=== PATIENT | female | born 1985 | race Caucasian/White ===

== ENCOUNTER 2016-10-10 17:46 | Emergency (ER) | payer SELFPAY ==
[~2016-10-10] VITALS: Ht 154.9 cm; Wt 60.0 kg
[~2016-10-10 17:46] MED LIST: MACR100C2 PO; PREN29TA PO
[2016-10-10 17:48] VITALS: BP 148/87; PULSE 109; RESP 20; TEMP 100; O2SAT 96
[2016-10-10] MEDS ORDERED: SODIUM CHLOR 0.9% 1000 ML INJ 1,000 ML IV ONE (18:16)
[2016-10-10] MEDS ORDERED: ONDANSETRON HCL 4 MG/2 ML VIAL IVP ONE (18:30)
[2016-10-10] MEDS ORDERED: KETOROLAC TROMETHAMINE 30 MG/ML (IVP) VIAL IVP ONE (18:30)
[2016-10-10] MEDS ORDERED: MORPHINE SULFATE 4 MG/ML INJ IV ONE (18:30)
--- NOTE | 2016-10-10 18:41 | PD ---
HPI Chief Complaint: Flank/Kidney Pain Time Seen by Provider: 18:08 Travel History International Travel<30 days: No Contact w/Intl Traveler<30days: No Traveled to known affect area: No History of Present Illness HPI 30-year-old female that presents to the ED for evaluation of right-sided flank pain with urinary symptoms. Per patient she's had this for the past couple of days. Per patient is started on Wednesday. Per patient he was more urinary dysuria with flank pain with cloudy urine. Per patient she denies any vaginal discharge or bleeding. No bowel movement issues. She's never had anything like this before. She denies possibly to . She has had 2 C-sections in the past. Denies any history of kidney stones. Per patient the pain is more significant on the right side but she also has another left side. Per patient the pain is 8 out of 10. Denies any nausea or vomiting. No allergies to medication. No trauma or injury. Patient was specifically asked if she breast-feeds and she states that she does not. PFSH Past Medical History Medical History: Denies Significant Hx Tetanus Vaccination: > 5 Years Influenza Vaccination: No ?: Not Past Surgical History Abdominal Surgery: Yes () Section: Yes Social History Alcohol Use: No Tobacco Use: No Substance Use: No Allergies-Medications (Allergen,Severity, Reaction): Coded Allergies: No Known Allergies (Unverified , 10/10/16) Reported Meds & Prescriptions Reported Meds & Active Scripts Active Diclofenac Sodium DR (Diclofenac Sodium) 75 Mg Tabdr 75 Mg PO BID PRN Cipro (Ciprofloxacin HCl) 500 Mg Tab 500 Mg PO BID Review of Systems Except as stated in HPI: all other systems reviewed are Neg Physical Exam Narrative GENERAL: SKIN: Warm and dry. HEAD: Atraumatic. Normocephalic. EYES: Pupils equal and round. No scleral icterus. No injection or drainage. ENT: No nasal bleeding or discharge. Mucous membranes pink and moist. Tongue is midline. No uvula deviation. NECK: Trachea midline. No JVD. CARDIOVASCULAR: Regular rate and rhythm. No murmurs, S3, S4. RESPIRATORY: No accessory muscle use. Clear to auscultation. Breath sounds equal bilaterally. GASTROINTESTINAL: Abdomen soft, non-tender, nondistended. Hepatic and splenic margins not palpable. Patient has reproducible right-sided CVA tenderness on palpation. MUSCULOSKELETAL: Extremities without clubbing, cyanosis, or edema. No obvious deformities. Full range of motion of the upper and lower extremities bilaterally. 2+ pulses bilaterally. NEUROLOGICAL: Awake and alert. No obvious cranial nerve deficits. Motor grossly within normal limits. Five out of 5 muscle strength in the arms and legs. Normal speech. PSYCHIATRIC: Appropriate mood and affect; insight and judgment normal. Data Data Last Documented VS Vital Signs Date Time Temp Pulse Resp B/P (MAP) Pulse Ox O2 Delivery O2 Flow Rate FiO2 10/10/16 18:52 97 18 107/65 (79) 98 Room Air 10/10/16 17:48 100.0 Orders Orders Complete Blood Count With Diff (10/10/16 18:16) Basic Metabolic Panel (Bmp) (10/10/16 18:16) Urinalysis - C+S If Indicated (10/10/16 18:16) Ed Urine Pregnancytest Poc (10/10/16 18:16) Ct Abd/Pel W/O Iv Contrast (10/10/16 18:16) Iv Access Insert/Monitor (10/10/16 18:16) Ketorolac Inj (Toradol Inj) (10/10/16 18:30) Morphine Inj (Morphine Inj) (10/10/16 18:30) Ondansetron Inj (Zofran Inj) (10/10/16 18:30) Sodium Chlor 0.9% 1000 Ml Inj (Ns 1000 M (10/10/16 18:16) Lactic Acid (10/10/16 18:16) Urine Culture (10/10/16 18:30) Ceftriaxone Inj (Rocephin Inj) (10/10/16 19:15) Labs Laboratory Tests Test 10/10/16 18:30 10/10/16 18:45 Urine Color YELLOW Urine Turbidity HAZY Urine pH 6.5 Urine Specific [place] 1.016 Urine Protein 30 mg/dL Urine Glucose (UA) NEG mg/dL Urine Ketones NEG mg/dL Urine Occult Blood SMALL Urine Nitrite NEG Urine Bilirubin NEG Urine Urobilinogen LESS THAN 2.0 MG/DL Urine Leukocyte Esterase LARGE Urine RBC 16 /hpf Urine WBC /hpf Urine WBC Clumps FEW Urine Squamous Epithelial Cells 3 /hpf Urine Bacteria OCC /hpf Urine Mucus FEW /lpf Microscopic Urinalysis Comment CULTURE INDICATED White Blood Count 6.9 TH/MM3 Red Blood Count 4.35 MIL/MM3 Hemoglobin 13.0 GM/DL Hematocrit 38.2 % Mean Corpuscular Volume 87.9 FL Mean Corpuscular Hemoglobin 29.9 PG Mean Corpuscular Hemoglobin Concent 33.9 % Red Cell Distribution Width 13.0 % Platelet Count 161 TH/MM3 Mean Platelet Volume 7.7 FL Neutrophils (%) (Auto) 76.1 % Lymphocytes (%) (Auto) 17.7 % Monocytes (%) (Auto) 5.5 % Eosinophils (%) (Auto) 0.4 % Basophils (%) (Auto) 0.3 % Neutrophils # (Auto) 5.2 TH/MM3 Lymphocytes # (Auto) 1.2 TH/MM3 Monocytes # (Auto) 0.4 TH/MM3 Eosinophils # (Auto) 0.0 TH/MM3 Basophils # (Auto) 0.0 TH/MM3 CBC Comment DIFF FINAL Differential Comment Blood Urea Nitrogen 14 MG/DL Creatinine 0.83 MG/DL Random Glucose 107 MG/DL Calcium Level 8.2 MG/DL Sodium Level 137 MEQ/L Potassium Level 4.0 MEQ/L Chloride Level 104 MEQ/L Carbon Dioxide Level 26.1 MEQ/L Anion Gap 7 MEQ/L Estimat Glomerular Filtration Rate 81 ML/MIN Lactic Acid Level 1.4 mmol/L MDM Medical Decision Making Medical Screen Exam Complete: Yes Emergency Medical Condition: Yes Medical Record Reviewed: Yes Interpretation(s) CBC & BMP Diagram 10/10/16 18:45 Calcium Level 8.2 L Last Impressions Abdomen/Pelvis CT 10/10/16 1816 Signed Impressions: Service Date/Time: Monday, October 10, 2016 19:02 - CONCLUSION: 1. Markedly enlarged fatty liver. 2. Minimal free fluid within the cul-de-sac. 3. No acute obstructive uropathy. 4. No CT evidence of acute appendicitis. Zak Bishop MD UA shows UTI lactic acid WNL Differential Diagnosis Kidney stone versus UTI versus cystitis versus pylonephritis Narrative Course 30-year-old female that presents to the ED for evaluation of right flank pain and urinary symptoms. Patient was properly examined and was found to have signs and symptoms consistent with appears to be likely kidney infection versus kidney stone. Labs and imaging were ordered. Patient was started on IV fluids and pain medications. Labs and imaging showed no sign of acute disease. Only UTI noted. Likely this is early pilonidal as patient does have CVA tenderness. We'll treat with antibiotics. Patient was given a dose here of ceftriaxone. She will be sent home with a prescription for diclofenac sodium and Cipro. Case was discussed in my attending Dr. Mendoza who was made aware of findings and agrees with plan. Patient and family agree with plan. Close follow with PCP. See ED for any worsening symptoms. Diagnosis Primary Impression: Pyelonephritis Additional Impression: UTI (urinary tract infection) Qualified Codes: N30.01 - Acute cystitis with hematuria Patient Instructions: Narcotic given in the ED, General Instructions Additional Instructions: Take medication as prescribed. Follow with PCP. See ED for any worsening symptoms. He can also take Tylenol in addition to prescription for pain as needed. Med/Other Pt SpecificInfo: Prescription(s) given Scripts Diclofenac Sodium DR (Diclofenac Sodium DR) 75 Mg Tabdr 75 MG PO BID Y for PAIN SCALE 1 TO 10, #20 TAB 0 Refills Prov: Vishnu Mendoza MD 10/10/16 Ciprofloxacin (Cipro) 500 Mg Tab 500 MG PO BID for Infection, #10 TAB 0 Refills Prov: Vishnu Mendoza MD 10/10/16 Disposition: 01 DISCHARGE HOME Condition: Stable Tom Sebastian Oct 10, 2016 18:41
[2016-10-10 18:52] VITALS: BP 107/65; PULSE 97; RESP 18; O2SAT 98
[2016-10-10 19:05] LABS: AUTOMATED NEUTROPHIL # 5.2 TH/MM3 (1.8-7.7); BASOPHIL % 0.3 % (0.0-2.0); EOSINOPHIL % 0.4 % (0.0-4.0); HEMATOCRIT 38.2 % (35.0-46.0); HEMO FLAGS DIFF FINAL; LYMPH % 17.7 % (9.0-44.0); LYMPHOCYTE # 1.2 TH/MM3 (1.0-4.8); MEAN CELL VOLUME 87.9 FL (80.0-100.0); MEAN CORPUSCULAR HEMOGLOBIN 29.9 PG (27.0-34.0); MEAN CORPUSCULAR HGB CONC 33.9 % (32.0-36.0); MONO % 5.5 % (0.0-8.0); NEUT % 76.1 % (16.0-70.0); PLATELET COUNT 161 TH/MM3 (150-450); RED BLOOD COUNT 4.35 MIL/MM3 (4.00-5.30); WHITE BLOOD COUNT 6.9 TH/MM3 (4.0-11.0)
[2016-10-10 19:09] LABS: BACTERIA, URINE OCC /hpf; BLOOD, URINE SMALL (NEG); COMMENT (UR) CULTURE INDICATED; CULTURE IF INDICATED CULTURE INDICATED; GLUCOSE,URINE NEG (NEG); KETONE, URINE NEG (NEG); MUCUS URINE FEW /lpf (OCC); NITRITE,URINE NEG (NEG); PH, URINE 6.5 (5.0-8.5); SQUAMOUS EPITHELIAL CELL URINE 3 /hpf (0-5); URINE COLOR YELLOW (YELLW/STRAW)
--- NOTE | 2016-10-10 19:14 | RADRPT ---
EXAM DATE/TIME: 10/10/2016 19:02 [facility] COMPARISON: No previous studies available for comparison. INDICATIONS : Right flank pain past 4 days. ORAL CONTRAST: No oral contrast ingested. RADIATION DOSE: 6.63 CTDIvol (mGy) MEDICAL HISTORY : None SURGICAL HISTORY : section. ENCOUNTER: Initial ACUITY: 4 - 6 days PAIN SCALE: 9/10 LOCATION: Right flank TECHNIQUE: Volumetric scanning of the abdomen and pelvis was performed. Using automated exposure control and ad justment of the mA and/or kV according to patient size, radiation dose was kept as low as reasonably achievable to obtain optimal diagnostic quality images. DICOM format image data is available electro nically for review and comparison. FINDINGS: LOWER LUNGS: The visualized lower lungs are clear. LIVER: The liver is markedly enlarged and demonstrates diffuse fatty infiltration. No focal mass or biliary ductal dilatation is noted. The gallbladder is unremarkable. SPLEEN: Normal size without lesion. PANCREAS: Within normal limits. KIDNEYS: Normal in size and shape. There is no mass, stone, or hydronephrosis. ADRENAL GLANDS: Within normal limits. VASCULAR: There is no aortic aneurysm. BOWEL/MESENTERY: The stomach, small bowel, and colon demonstrate no acute abnormality. There is no free intraperitone al air or fluid. No CT evidence of acute appendicitis. ABDOMINAL WALL: Within normal limits. RETROPERITONEUM: There is no lymphadenopathy. BLADDER: No wall thickening or mass. REPRODUCTIVE: Within normal limits. Minimal free fluid is noted within the cul-de-sac. INGUINAL: There is no lymphadenopathy or hernia. MUSCULOSKELETAL: Within normal limits for patient age. CONCLUSION: 1. Markedly enlarged fatty liver. 2. Minimal free fluid within the cul-de-sac. 3. No acute obstructive uropathy. 4. No CT evidence of acute appendicitis. Zak Bishop MD on October 10, 2016 at 19:08 Board Certified Radiologist. This report was verified electronically.
[2016-10-10] MEDS ORDERED: cefTRIAXone INJ 1,000 MG in SODIUM CHLORIDE 0.9% INJ 100 ML IV ONE (19:15)
[2016-10-10 19:24] LABS: BICARBONATE 26.1 MEQ/L (21.0-32.0)
[2016-10-10] MEDS ORDERED: DICL75TA PO (19:30)
[2016-10-10] MEDS ORDERED: CIPR-9 PO (19:30)
== END 2016-10-10 20:36 | disposition home or self-care (01) ==
LOC: NEPE 17:46
DX: N12 Tubulo-interstitial nephritis, not specified as acute or chronic (principal); B96.20 Unspecified Escherichia coli [E. coli] as the cause of diseases classified elsewhere
CPT/HCPCS: 74176; 80048; 81001; 83605; 84703; 85025; 87077; 87086; 87186; 96374; 96375; 99285; J0696; J1885; J2270; J2405; J7030

== ENCOUNTER 2017-04-15 17:31 | Emergency (ER) | payer SELFPAY ==
[~2017-04-15] VITALS: Ht 154.9 cm; Wt 55.6 kg
[~2017-04-15 17:31] MED LIST changes: +CIPR-9 PO; +DICL75TA PO; -MACR100C2 PO; -PREN29TA PO
[2017-04-15 17:35] VITALS: BP 123/59; PULSE 98; RESP 16; TEMP 99.1; O2SAT 98
[2017-04-15] MEDS ORDERED: SODIUM CHLOR 0.9% 1000 ML INJ 1,000 ML IV SCH (17:45)
[2017-04-15] MEDS ORDERED: SODIUM CHLORIDE 0.9% FLUSH 10 ML FLUSH IV FLUSH PRN (17:45)
[2017-04-15 17:57] LABS: BLOOD, URINE LARGE (NEG); GLUCOSE,URINE NEG (NEG); KETONE, URINE 40 mg/dL (NEG); NITRITE,URINE POS (NEG); URINE COLOR YELLOW (YELLW/STRAW); URINE LEUKOCYTE ESTERASE LARGE (NEG)
[2017-04-15 18:03] LABS: BILIRUBIN, URINE NEG (NEG)
--- NOTE | 2017-04-15 18:11 | PD ---
HPI Chief Complaint: Abdominal Pain Time Seen by Provider: 17:39 Travel History International Travel<30 days: No Contact w/Intl Traveler<30days: No Traveled to known affect area: No History of Present Illness HPI This is a 31-year-old female who presents for abdominal pain. She states that yesterday, she developed urinary urgency, frequency and dysuria. She now has mild suprapubic and right greater than left flank pain. No fever. Mild nausea with no vomiting. No diarrhea. No vaginal discharge or bleeding. Last menstrual cycle was 2 weeks ago and normal. Patient does have a history of pyelonephritis. She took Tylenol this morning with some relief. No aggravating factors. No focal weakness, numbness, tingling, saddle paresthesias , bowel or bladder dysfunction. Crampy in nature. Mild in severity. Onset gradual. PFSH Past Medical History Medical History: Denies Significant Hx ?: Not LMP: 04/01/17 Past Surgical History Abdominal Surgery: Yes () Section: Yes Social History Alcohol Use: No Tobacco Use: No Substance Use: No Allergies-Medications (Allergen,Severity, Reaction): Coded Allergies: No Known Allergies (Unverified Adverse Reaction, Unknown, 04/15/17) Reported Meds & Prescriptions Reported Meds & Active Scripts Active Keflex (Cephalexin) 500 Mg Cap 500 Mg PO Q12H 10 Days Review of Systems Except as stated in HPI: all other systems reviewed are Neg Physical Exam Narrative GENERAL: Alert, well nourished, well appearing patient resting on the bed in no acute distress. Vital Signs reviewed SKIN: Focused skin assessment warm/dry. HEAD: Atraumatic. Normocephalic. EYES: Pupils equal and round. No scleral icterus. No injection or drainage. ENT: No nasal bleeding or discharge. Mucous membranes pink and moist. NECK: Trachea midline. No JVD. Spontaneous, painless full range of motion with no meningismus CARDIOVASCULAR: Regular rate and rhythm. No murmur appreciated. Extremities warm and well perfused with bounding peripheral pulses RESPIRATORY: No accessory muscle use. Clear to auscultation. Breath sounds equal bilaterally. Breathing easily and speaking in full sentences GASTROINTESTINAL: Abdomen soft, mildly tender in suprapubic and right mid abdomen , nondistended. Normal bowel sounds. No rigid, rebound, guarding. Negative Drummond sign MUSCULOSKELETAL: No obvious deformities. No clubbing. No cyanosis. No edema. Compartments are soft NEUROLOGICAL: Awake and alert. No obvious cranial nerve deficits. Motor grossly within normal limits. Normal speech. Sensation intact. Normal gait PSYCHIATRIC: Appropriate mood and affect; insight and judgment normal. Data Data Last Documented VS Vital Signs Date Time Temp Pulse Resp B/P (MAP) Pulse Ox O2 Delivery O2 Flow Rate FiO2 04/15/17 17:35 99.1 98 16 123/59 (80) 98 Orders Orders Complete Blood Count With Diff (04/15/17 17:45) Comprehensive Metabolic Panel (04/15/17 17:45) Urinalysis - C+S If Indicated (04/15/17 17:45) Iv Access Insert/Monitor (04/15/17 17:45) Sodium Chlor 0.9% 1000 Ml Inj (Ns 1000 M (04/15/17 17:45) Sodium Chloride 0.9% Flush (Ns Flush) (04/15/17 17:45) Ed Urine Pregnancytest Poc (04/15/17 17:45) Ct Abd/Pel W/O Iv Contrast (04/15/17 18:03) Urine Culture (04/15/17 17:45) Ceftriaxone Inj (Rocephin Inj) (04/15/17 18:30) Ketorolac Inj (Toradol Inj) (04/15/17 19:30) Labs Laboratory Tests Test 04/15/17 17:45 3 18:30 Urine Collection Type CLEAN CATCH Urine Color YELLOW Urine Turbidity CLOUDY Urine pH 6.0 Urine Specific [place] 1.020 Urine Protein 100 mg/dL Urine Glucose (UA) NEG mg/dL Urine Ketones 40 mg/dL Urine Occult Blood LARGE Urine Nitrite POS Urine Bilirubin NEG Urine Urobilinogen 0.2 MG/DL Urine Leukocyte Esterase LARGE Urine RBC 20-24 /hpf Urine WBC INNUM /hpf Urine WBC Clumps MANY Urine Squamous Epithelial Cells 0-5 /hpf Urine Bacteria FEW /hpf Microscopic Urinalysis Comment CULTURE INDICATED White Blood Count 9.2 TH/MM3 Red Blood Count 4.76 MIL/MM3 Hemoglobin 15.0 GM/DL Hematocrit 42.2 % Mean Corpuscular Volume 88.8 FL Mean Corpuscular Hemoglobin 31.4 PG Mean Corpuscular Hemoglobin Concent 35.4 % Red Cell Distribution Width 12.6 % Platelet Count 168 TH/MM3 Mean Platelet Volume 7.9 FL Neutrophils (%) (Auto) 86.2 % Lymphocytes (%) (Auto) 8.9 % Monocytes (%) (Auto) 4.6 % Eosinophils (%) (Auto) 0.0 % Basophils (%) (Auto) 0.3 % Neutrophils # (Auto) 8.0 TH/MM3 Lymphocytes # (Auto) 0.8 TH/MM3 Monocytes # (Auto) 0.4 TH/MM3 Eosinophils # (Auto) 0.0 TH/MM3 Basophils # (Auto) 0.0 TH/MM3 CBC Comment DIFF FINAL Differential Comment Blood Urea Nitrogen 11 MG/DL Creatinine 0.81 MG/DL Random Glucose 108 MG/DL Total Protein 8.7 GM/DL Albumin 3.9 GM/DL Calcium Level 8.9 MG/DL Alkaline Phosphatase 102 U/L Aspartate Amino Transf (AST/SGOT) 38 U/L Alanine Aminotransferase (ALT/SGPT) 36 U/L Total Bilirubin 1.0 MG/DL Sodium Level 133 MEQ/L Potassium Level 3.6 MEQ/L Chloride Level 100 MEQ/L Carbon Dioxide Level 23.7 MEQ/L Anion Gap 9 MEQ/L Estimat Glomerular Filtration Rate 83 ML/MIN [facility] Medical Decision Making Medical Screen Exam Complete: Yes Emergency Medical Condition: Yes Medical Record Reviewed: Yes Interpretation(s) CT Abd/Pel W/O IV Contrast EXAM DATE/TIME: 04/15/2017 19:01 [facility] COMPARISON: CT ABDOMEN & PELVIS W/O CONTRAST, October 10, 2016, 19:02. INDICATIONS : Right sided pain; appendicitis vs. renal calculi. ORAL CONTRAST: No oral contrast ingested. RADIATION DOSE: 8.63 CTDIvol (mGy) MEDICAL HISTORY : None SURGICAL HISTORY : section. ENCOUNTER: Initial ACUITY: 1 day PAIN SCALE: 10/10 LOCATION: Right flank TECHNIQUE: Volumetric scanning of the abdomen and pelvis was performed. Using automated exposure control and adjustment of the mA and/or kV according to patient size, radiation dose was kept as low as reasonably achievable to obtain optimal diagnostic quality images. DICOM format image data is available electronically for review and comparison. FINDINGS: LOWER LUNGS: The visualized lower lungs are clear. LIVER: There is a markedly enlarged liver with diffuse fatty infiltration. No focal hepatic mass is noted There is no dilation of the biliary tree. No calcified gallstones. SPLEEN: Normal size without lesion. PANCREAS: Within normal limits. KIDNEYS: Normal in size and shape. There is no mass, stone, or hydronephrosis. ADRENAL GLANDS: Within normal limits. VASCULAR: There is no aortic aneurysm. BOWEL/MESENTERY: The stomach, small bowel, and colon demonstrate no acute abnormality. There is no free intraperitoneal air or fluid. ABDOMINAL WALL: Within normal limits. RETROPERITONEUM: There is no lymphadenopathy. BLADDER: No wall thickening or mass. REPRODUCTIVE: Within normal limits. INGUINAL: There is no lymphadenopathy or hernia. MUSCULOSKELETAL: Within normal limits for patient age. CONCLUSION: 1. Markedly enlarged fatty liver. 2. No acute obstructive uropathy. 3. No CT evidence of acute appendicitis. Laboratory Tests Test 04/15/17 17:45 04/15/17 18:30 Urine Collection Type CLEAN CATCH Urine Color YELLOW Urine Turbidity CLOUDY Urine pH 6.0 Urine Specific [place] 1.020 Urine Protein 100 mg/dL Urine Glucose (UA) NEG mg/dL Urine Ketones 40 mg/dL Urine Occult Blood LARGE Urine Nitrite POS Urine Bilirubin NEG Urine Urobilinogen 0.2 MG/DL Urine Leukocyte Esterase LARGE Urine RBC 20-24 /hpf Urine WBC INNUM /hpf Urine WBC Clumps MANY Urine Squamous Epithelial Cells 0-5 /hpf Urine Bacteria FEW /hpf Microscopic Urinalysis Comment CULTURE INDICATED White Blood Count 9.2 TH/MM3 Red Blood Count 4.76 MIL/MM3 Hemoglobin 15.0 GM/DL Hematocrit 42.2 % Mean Corpuscular Volume 88.8 FL Mean Corpuscular Hemoglobin 31.4 PG Mean Corpuscular Hemoglobin Concent 35.4 % Red Cell Distribution Width 12.6 % Platelet Count 168 TH/MM3 Mean Platelet Volume 7.9 FL Neutrophils (%) (Auto) 86.2 % Lymphocytes (%) (Auto) 8.9 % Monocytes (%) (Auto) 4.6 % Eosinophils (%) (Auto) 0.0 % Basophils (%) (Auto) 0.3 % Neutrophils # (Auto) 8.0 TH/MM3 Lymphocytes # (Auto) 0.8 TH/MM3 Monocytes # (Auto) 0.4 TH/MM3 Eosinophils # (Auto) 0.0 TH/MM3 Basophils # (Auto) 0.0 TH/MM3 CBC Comment DIFF FINAL Differential Comment Blood Urea Nitrogen 11 MG/DL Creatinine 0.81 MG/DL Random Glucose 108 MG/DL Total Protein 8.7 GM/DL Albumin 3.9 GM/DL Calcium Level 8.9 MG/DL Alkaline Phosphatase 102 U/L Aspartate Amino Transf (AST/SGOT) 38 U/L Alanine Aminotransferase (ALT/SGPT) 36 U/L Total Bilirubin 1.0 MG/DL Sodium Level 133 MEQ/L Potassium Level 3.6 MEQ/L Chloride Level 100 MEQ/L Carbon Dioxide Level 23.7 MEQ/L Anion Gap 9 MEQ/L Estimat Glomerular Filtration Rate 83 ML/MIN Differential Diagnosis , UTI, pyelonephritis, nephrolithiasis, appendicitis, ovarian cyst Narrative Course IV access was established. Labs, urinalysis, imaging were performed. Patient was given IV fluids and Rocephin and Toradol. Given her flank pain and blood in urine, CT was performed to evaluate for obstructive uropathy. I reviewed the results of the workup with the patient. She is resting comfortably in the emergency department in no acute distress. Plan for discharge with supportive care, Keflex and close outpatient follow-up. Patient understands the importance of close outpatient follow-up. She understands she may require further testing and treatment as an outpatient. She understands strict return indications. She is comfortable with this plan and eager to go home. Diagnosis Primary Impression: Pyelonephritis Referrals: Primary Care Physician 1-4 days Patient Instructions: General Instructions, Kidney Infection (DC) Additional Instructions: Drink plenty of water to stay well hydrated. Use ibuprofen and Tylenol as needed for pain or fever. Take antibiotics as directed. Follow-up with primary physician within 1-4 days. You may require further testing and treatment as an outpatient. No alcohol. Med/Other Pt SpecificInfo: Prescription(s) given Scripts Cephalexin (Keflex) 500 Mg Cap 500 MG PO Q12H for Infection for 10 Days, #20 CAP 0 Refills Prov: Amanda Leslie MD 04/15/17 Disposition: 01 DISCHARGE HOME Condition: Stable Amanda Leslie MD Apr 15, 2017 18:11
[2017-04-15 18:17] LABS: BACTERIA, URINE FEW /hpf; SQUAMOUS EPITHELIAL CELL URINE 0-5 /hpf (0-5); WBC, URINE INNUM /hpf (0-5); WHITE BLOOD CELL CLUMPS MANY
[2017-04-15] MEDS ORDERED: cefTRIAXone INJ 1,000 MG in SODIUM CHLORIDE 0.9% INJ 100 ML IV ONE (18:30)
[2017-04-15 18:43] LABS: BASOPHIL % 0.3 % (0.0-2.0); HEMATOCRIT 42.2 % (35.0-46.0); LYMPH % 8.9 % (9.0-44.0); LYMPHOCYTE # 0.8 TH/MM3 (1.0-4.8); MEAN CELL VOLUME 88.8 FL (80.0-100.0); MEAN CORPUSCULAR HEMOGLOBIN 31.4 PG (27.0-34.0); MEAN CORPUSCULAR HGB CONC 35.4 % (32.0-36.0); MEAN PLATELET VOLUME 7.9 FL (7.0-11.0); MONO % 4.6 % (0.0-8.0); MONOCYTE # 0.4 TH/MM3 (0-0.9); NEUT % 86.2 % (16.0-70.0); PLATELET COUNT 168 TH/MM3 (150-450); RED BLOOD COUNT 4.76 MIL/MM3 (4.00-5.30); RED CELL DISTRIBUTION WIDTH 12.6 % (11.6-17.2); WHITE BLOOD COUNT 9.2 TH/MM3 (4.0-11.0)
[2017-04-15 18:50] LABS: CHLORIDE 100 MEQ/L (98-107); SODIUM (NA) 133 MEQ/L (136-145)
[2017-04-15 18:53] LABS: CALCIUM 8.9 MG/DL (8.5-10.1)
[2017-04-15 18:54] LABS: ALBUMIN 3.9 GM/DL (3.4-5.0); BICARBONATE 23.7 MEQ/L (21.0-32.0); BLOOD UREA NITROGEN 11 MG/DL (7-18); GLUCOSE,RANDOM 108 MG/DL (74-106)
[2017-04-15 18:57] LABS: ALT (GPT) 36 U/L (10-53); AST (GOT) 38 U/L (15-37); CREATININE 0.81 MG/DL (0.50-1.00); GLOMERULAR FILTRATION RATE 83 ML/MIN (>89)
[2017-04-15 18:58] LABS: TOTAL PROTEIN 8.7 GM/DL (6.4-8.2)
[2017-04-15 19:00] LABS: ALKALINE PHOSPHATASE 102 U/L (45-117)
--- NOTE | 2017-04-15 19:25 | RADRPT ---
EXAM DATE/TIME: 04/15/2017 19:01 [facility] COMPARISON: CT ABDOMEN & PELVIS W/O CONTRAST, October 10, 2016, 19:02. INDICATIONS : Right sided pain; appendicitis vs. renal calculi. ORAL CONTRAST: No oral contrast ingested. RADIATION DOSE: 8.63 CTDIvol (mGy) MEDICAL HISTORY : None SURGICAL HISTORY : section. ENCOUNTER: Initial ACUITY: 1 day PAIN SCALE: 10/10 LOCATION: Right flank TECHNIQUE: Volumetric scanning of the abdomen and pelvis was performed. Using automated exposure control and ad justment of the mA and/or kV according to patient size, radiation dose was kept as low as reasonably achievable to obtain optimal diagnostic quality images. DICOM format image data is available electro nically for review and comparison. FINDINGS: LOWER LUNGS: The visualized lower lungs are clear. LIVER: There is a markedly enlarged liver with diffuse fatty infiltration. No focal hepatic mass is noted Th ere is no dilation of the biliary tree. No calcified gallstones. SPLEEN: Normal size without lesion. PANCREAS: Within normal limits. KIDNEYS: Normal in size and shape. There is no mass, stone, or hydronephrosis. ADRENAL GLANDS: Within normal limits. VASCULAR: There is no aortic aneurysm. BOWEL/MESENTERY: The stomach, small bowel, and colon demonstrate no acute abnormality. There is no free intraperitone al air or fluid. ABDOMINAL WALL: Within normal limits. RETROPERITONEUM: There is no lymphadenopathy. BLADDER: No wall thickening or mass. REPRODUCTIVE: Within normal limits. INGUINAL: There is no lymphadenopathy or hernia. MUSCULOSKELETAL: Within normal limits for patient age. CONCLUSION: 1. Markedly enlarged fatty liver. 2. No acute obstructive uropathy. 3. No CT evidence of acute appendicitis. Zak Bishop MD on April 15, 2017 at 19:21 Board Certified Radiologist. This report was verified electronically.
[2017-04-15] MEDS ORDERED: KETOROLAC TROMETHAMINE 30 MG/ML (IVP) VIAL IV PUSH ONE (19:30)
[2017-04-15] MEDS ORDERED: CEPH-460 PO (19:30)
[2017-04-15 21:21] VITALS: BP 120/76
== END 2017-04-15 21:25 | disposition home or self-care (01) ==
LOC: PHED 17:31
DX: N12 Tubulo-interstitial nephritis, not specified as acute or chronic (principal); B96.20 Unspecified Escherichia coli [E. coli] as the cause of diseases classified elsewhere
CPT/HCPCS: 74176; 80053; 81001; 84703; 85025; 87077; 87086; 87186; 96361; 96365; 99284; J0696; J1885; J7030